=== PATIENT | female | born 1990 | race Caucasian/White ===

== ENCOUNTER 2023-10-25 10:34 | Emergency (ER) | payer OTHER ==
[~2023-10-25] VITALS: Ht 162.5 cm; Wt 59.9 kg
[2023-10-25 11:11] LABS: BASO # 0.1 10*3/uL (0.0-0.1); BASO % 0.7 % (0.0-1.0); EOS # 0.1 10*3/uL (0.0-0.4); EOS % 1.4 % (1.0-4.0); HEMATOCRIT 43.8 % (37.0-47.0); LYMPH # 1.3 10*3/uL (1.3-4.4); LYMPH % 17.9 % (27.0-41.0); MEAN CELL VOLUME 92.6 fl (81.0-99.0); MEAN CORPUSCULAR HGB CONC 32.4 g/dl (33.0-37.0); MEAN PLATELET VOLUME 9.8 fl (9.6-12.3); MONO # 0.4 10*3/uL (0.1-1.0); MONO % 5.6 % (3.0-9.0); NEUT # 5.4 10*3/uL (2.3-7.9); NEUT % 74.3 % (47.0-73.0); PLATELET COUNT AUTOMATED 260 10*3/uL (130-400); RED BLOOD COUNT 4.73 10*6/uL (4.10-5.10); RED CELL DISTRI WIDTH 11.9 % (0-14.5); WHITE BLOOD COUNT 7.3 10*3/uL (4.8-10.8)
[2023-10-25 11:30] LABS: ALKALINE PHOSPHATASE 49 U/L (46-116); BUN 6 mg/dl (9-23); CHLORIDE 103 mmol/L (98-107); LIPASE 32 U/L (12-53); POTASSIUM 3.6 mmol/L (3.4-5.1); SGPT/ALT 32 U/L (5-49); TOTAL PROTEIN 7.5 gm/dL (6.0-8.0)
[2023-10-25] MEDS ORDERED: FLOMAX0.4 MG PO (12:06)
[2023-10-25] MEDS ORDERED: MELOXICAM15 MG PO (12:07)
== END 2023-10-25 12:14 | disposition home or self-care (01) ==
LOC: ED 10:34
PROVIDERS: Internal Medicine
DX: N20.0 Calculus of kidney (principal); M54.50 Low back pain, unspecified; R11.2 Nausea with vomiting, unspecified

== ENCOUNTER → 2024-11-09 | Outpatient (CLI) | payer OTHER ==
[~2024-11-09] MED LIST: FLOMAX0.4 MG PO; MELOXICAM15 MG PO
== END | disposition home or self-care (01) ==
LOC: LAB 07:59
PROVIDERS: ATTEND Nurse Practitioner Women's Health
DX: N91.2 Amenorrhea, unspecified (principal)

== ENCOUNTER → 2024-11-11 | Outpatient (CLI) | payer OTHER | END | disposition home or self-care (01) | LOC: LAB 10:17 | PROVIDERS: ATTEND Nurse Practitioner Women's Health | DX: Z33.1 Pregnant state, incidental (principal) ==

== ENCOUNTER → 2025-03-01 | Outpatient (CLI) | payer OTHER | END | disposition home or self-care (01) | LOC: LAB 08:37 | PROVIDERS: ATTEND Nurse Practitioner Women's Health | DX: N91.2 Amenorrhea, unspecified (principal) ==

== ENCOUNTER → 2025-03-03 | Outpatient (CLI) | payer OTHER | LOC: LAB 13:48 | PROVIDERS: ATTEND Nurse Practitioner Women's Health | DX: N91.2 Amenorrhea, unspecified (principal) ==

== ENCOUNTER → 2025-04-13 | Outpatient (CLI) | payer OTHER ==
[2025-04-13 16:04] LABS: BASO # 0.1 10*3/uL (0.0-0.1); BASO % 0.5 % (0.0-1.0); EOS # 0.3 10*3/uL (0.0-0.4); EOS % 2.7 % (1.0-4.0); MEAN CELL VOLUME 88.5 fl (81.0-99.0); MEAN CORPUSCULAR HGB 29.7 pg (27.0-31.0); MEAN PLATELET VOLUME 9.1 fl (9.6-12.3); MONO # 0.6 10*3/uL (0.1-1.0); MONO % 5.2 % (3.0-9.0); NEUT # 9.3 10*3/uL (2.3-7.9); NEUT % 75.8 % (47.0-73.0); NUCLEATED RED BLOOD CELL 0.0 % (0.0-0.0); NUCLEATED RED BLOOD CELL 0.0 10*3/uL (0.0-0.0); PLATELET COUNT AUTOMATED 273 10*3/uL (130-400); RED CELL DISTRI WIDTH 12.5 % (0-14.5)
[2025-04-13 17:00] LABS: THYROXINE (T4) TOTAL 8.7 ug/dl (4.5-10.9)
== END | disposition home or self-care (01) ==
LOC: LAB 15:29
PROVIDERS: ATTEND Obstetrics & Gynecology
DX: Z33.1 Pregnant state, incidental (principal)

== ENCOUNTER → 2025-04-29 | Outpatient (CLI) | payer OTHER | END | disposition home or self-care (01) | LOC: US 00:52 | PROVIDERS: ATTEND Obstetrics & Gynecology | DX: Z34.81 Encounter for supervision of other normal pregnancy, first trimester (principal); Z3A.12 12 weeks gestation of pregnancy ==

== ENCOUNTER → 2025-05-30 | Outpatient (CLI) | payer OTHER ==
[2025-06-02 00:06] LABS: AFP VALUE 60.1 ng/mL (.); GESTATIONAL AGE BASED ON As provided (.); MATERNAL AGE AT EDD 34.3 yr (.); OSBR RISK See interpretation. (.); TEST RESULTS See interpretation. (.)
== END | disposition home or self-care (01) ==
LOC: LAB 14:27
PROVIDERS: ATTEND Obstetrics & Gynecology
DX: Z36.8A Encounter for antenatal screening for other genetic defects (principal)

== ENCOUNTER → 2025-07-27 | Outpatient (CLI) | payer OTHER ==
[2025-07-27 09:09] LABS: BASO # 0.1 10*3/uL (0.0-0.1); BASO % 0.6 % (0.0-1.0); EOS # 0.3 10*3/uL (0.0-0.4); EOS % 2.7 % (1.0-4.0); MEAN CELL VOLUME 91.7 fl (81.0-99.0); MEAN CORPUSCULAR HGB 30.7 pg (27.0-31.0); MEAN PLATELET VOLUME 9.2 fl (9.6-12.3); MONO # 0.6 10*3/uL (0.1-1.0); MONO % 5.3 % (3.0-9.0); NEUT # 7.7 10*3/uL (2.3-7.9); NEUT % 71.8 % (47.0-73.0); NUCLEATED RED BLOOD CELL 0.0 % (0.0-0.0); NUCLEATED RED BLOOD CELL 0.0 10*3/uL (0.0-0.0); PLATELET COUNT AUTOMATED 218 10*3/uL (130-400); RED CELL DISTRI WIDTH 12.7 % (0-14.5)
== END | disposition home or self-care (01) ==
LOC: LAB 08:50
PROVIDERS: ATTEND Obstetrics & Gynecology
DX: Z34.92 Encounter for supervision of normal pregnancy, unspecified, second trimester (principal); Z3A.24 24 weeks gestation of pregnancy

== ENCOUNTER → 2025-08-02 | Outpatient (CLI) | payer OTHER ==
[~2025-08-02] MED LIST changes: +PRENATAL VITAMIN PO
== END | disposition home or self-care (01) ==
LOC: LAB 07:46
PROVIDERS: ATTEND Obstetrics & Gynecology
DX: R73.01 Impaired fasting glucose (principal)